=== PATIENT | male | born 1980 | race Caucasian/White ===

== ENCOUNTER 2024-11-28 13:39 | Emergency (ER) | payer OTHER, MEDICAID, SELFPAY ==
[2024-11-28 13:42] VITALS: BP 134/88
--- NOTE | 2024-11-28 14:30 | ED.GENMED ---
History of Present Illness
General
Chief Complaint: Fall
Source: patient
Exam Limitations: none
Time Seen by Provider: 11/28/24 14:00
History of Present Illness
History of Present Illness:
44yoM with a history of hydrocephalus s/p KEY MAKER shunt, seizures, testicular cancer s/p surgery, and hypertension presenting via EMS for evaluation after a fall. Patient was at his day program today. He was sitting in his wheelchair and the wheelchair
van and during transportation, his chair fell backwards. He struck the back of his head against the doors of the van. There was no reported loss of consciousness. Patient is complaining of a headache. No reported vomiting. Mother states he is
acting normally currently. He does not take any blood thinners. Patient has not had a shunt revision in about 20 years.
Past History
Past History
ED Past Medical History: Other (hypocephalus, htn, arthritis, depression, sz)
ED Past Surgical History: Orthopedic and Other (shunt)
Social History
Tobacco: Non-smoker
Alcohol: None
Drug: None
Personal: Single
Phy Exam
General Physical Exam
General Presentation: well appearing and no apparent distress
General Skin: warm and dry
General Habitus: normal
General Mental: alert
ENT Exam
ENT Exam: normocephalic and other (Healed surgical scar noted to scalp. No external signs of head trauma. No cervical spine tenderness.)
Eye Exam
Eye Exam: PERRL and conjunctiva normal
Pulmonary Exam
Pulmonary Exam: lungs clear, no respiratory distress, no rales, no crackles and no rhonchi
Gastrointestinal Exam
Gastrointestinal Exam: non tender, soft and non distended
Neurological Exam
Neurological Exam: alert
Skin Exam
Skin Exam: normal color and warm/dry
Psychiatric Exam
Psychiatric Exam: normal mood/affect
Course
Orders/Labs/Results
Orders:
Orders
11/28/24 13:48
CT Cervical Spine W/o Iv Contr Urgent
Comment:
Reason For Exam: fall with head strike
CT Head W/o Iv Contrast Urgent
Comment:
Reason For Exam: fall with head strike
Vital Signs
Initial and Last Documented VS:
Initial Vital Signs
Temp Pulse Resp BP Pulse Ox
99.1 F 91 17 134/88 95
11/28/24 13:42 11/28/24 13:42 11/28/24 13:42 11/28/24 13:42 11/28/24 13:42
Last Documented Vital Signs
Temp Pulse Resp BP Pulse Ox
99.1 F 91 17 134/88 95
11/28/24 13:42 11/28/24 13:42 11/28/24 13:42 11/28/24 13:42 11/28/24 14:32
MDM/Problems Addressed
Differential Diagnosis Includes:
44yoM here for a head injury. Wheelchair fell backward and he struck his head. No LOC. Hx of KEY MAKER shunt. At baseline mental status per mother. He is awake alert. No external signs of head trauma noted. Differential diagnosis includes: Closed head
injury, concussion, intracranial hemorrhage, fracture
CT head and cervical spine obtained. Imaging negative for traumatic injuries. Ventricles are mildly dilated but unchanged from prior CT in 2021. Patient stable for discharge. Advised follow-up with PCP. Mother in agreement with plan and he was
discharged in stable condition.
*Pulse Oximetry
SaO2: 95
Oxygen Mode of Delivery: Room air
Patient hypoxic: no
*Critical Care Note
Total Time (30-74mins, 75-104mins- exclusive of procedures): Not Applicable
ED Attending Note
-
Portions of this chart may have been created with voice recognition software.� Occasional wrong word or��sound alike� substitutions may have occurred due to the inherent limitations of voice recognition software.
Discharge Plan
Departure
Patient Disposition: Home (Routine Discharge)
Date of Disposition: 11/28/24
Time of Disposition: 15:56
Patient with high blood pressure during this ER visit?: No
Discharge Problem:
Closed head injury
Instructions: Head Injury in Adults (DC)
Referrals:
TEQUILA FRY, DO [Family Provider]
Activity Restrictions/Additional Instructions:
CT head and cervical spine do not show any injuries.
Please follow-up with your family doctor. Return to the ER with any new or worsening symptoms including a change in mental status or excessive vomiting.
Interventions
Interventions:
*Risk Screen - Suicide Last Done: 11/28/24 13:44
*General Assessment Last Done: 11/28/24 13:44
*Neglect/Abuse Screening Last Done: 11/28/24 13:44
*ED COVID-19 Vaccine History Last Done: 11/28/24 13:44
*ED Influenza Vaccine History Last Done: 11/28/24 13:44
*Nursing Disposition Last Done: 11/28/24 16:08
ED- Neurological Assessment Last Done: 11/28/24 14:41
ED-Skin Assessment Last Done: 11/28/24 14:41
Discharge Date and Time
Discharge Date/Time: 11/28/24 16:08
Print Language: [place]
== END 2024-11-28 16:08 | disposition home or self-care (01) ==
LOC: EMR 13:39
PROVIDERS: EMERGENCY PHYSICIAN Emergency Medicine; FAMILY PHYSICIAN Family Medicine
DX: S09.90XA Unspecified injury of head, initial encounter (principal); I10 Essential (primary) hypertension; G91.9 Hydrocephalus, unspecified; Z98.2 Presence of cerebrospinal fluid drainage device; W05.0XXA Fall from non-moving wheelchair, initial encounter; Y92.818 Other transport vehicle as the place of occurrence of the external cause
CPT/HCPCS: 99284; 70450; 72125